=== PATIENT | female | born 1985 | race Caucasian/White ===

== ENCOUNTER 2016-09-19 14:38 | Emergency (ER) | payer OTHER ==
[~2016-09-19] VITALS: Ht 165.1 cm; Wt 68.0 kg
[~2016-09-19 14:38] MED LIST: ALBUTEROL0.09 MG/A1 INH; BIAXIN FILMTAB500 MG PO; CIPRO 500MG TA500 MG PO; CIPROFLOXACIN500 MG PO; DILAUDID2 M1 PO; DILAUDID2 MG PO; HYDROCODONE/ACE1 TA1 PO; LUPRON DEPOT3.75 MG IM; NORETHINDRONE ACETATE PO; POTASSIUM CHLO20 ME1 PO; PREDNISONE 20MG20 MG PO; REGLAN10 M1 PO; TRAMADOL HCL50 M1 PO; TRAMADOL HCL50 MG PO; VICODIN 5-3001 EACH PO; ZOFRAN ODT4 M1 SL; ZOFRAN ODT4 MG PO
--- NOTE | 2016-09-19 15:29 | ED GI/GU/ABDOMINAL COMPLAINT ---
History of Present Illness General Chief Complaint: Abdominal Pain/Flank Pain Stated Complaint: I HAVE A KIDNEY STONE Source: patient Exam Limitations: no limitations Vital Signs & Intake/Output Vital Signs & Intake/Output Vital Signs Date Time Temp Pulse Resp B/P B/P Pulse O2 O2 Flow FiO2 Mean Ox Delivery Rate 09/19 1457 98.8 110 20 162/88 98 Room Air Allergies Coded Allergies: aspirin (Severe, RASH 03/12/16) venom-honey bee (BEE VENOM (HONEY BEE)) (Severe, ANAPHYLAXIS 03/12/16) adhesive tape (Intermediate, RASH 03/12/16) ketorolac (RASH, HIVES 09/19/16) oxycodone (RASH 03/12/16) Triage Note: PT PRESENTS TO ED WITH INTERMINTENT 5/10 "SHARP" LLQ PAIN WHICH BEGAN AT 2300 HOURS YESTERDAY (09/18/16). PAIN INCREASES UPON PALPATION. PT C/O BRIGHT RED BLOOD IN URINE SINCE 1000 HOURS TODAY (09/19/16). HX OF HYSTERECTOMY 2011. Triage Nurses Notes Reviewed? yes ? n Is pt currently ? No Onset: Gradual Duration: hour(s): (8) Timing: recent history Quality/Severity: sharpness Severity Numbers: 7 Location: left flank Radiation: LLQ Activities at Onset: none Prior Abdominal Problems: similar symptoms Past Sexual History: Unobtainable at this time No Modifying Factors: none HPI: Patient is a 31-year-old female with history of kidney stones presenting to the emergency department with chief complaint of left flank pain that pain going on for the past 6-8 hours. She reports that this started gradually, pain is sharp and stabbing located over the left low back radiating to the left lower quadrant. Chest reports associated hematuria that started this morning when she was at work. No dysuria. She does have urgency and decreased urinary output since pain started. Low-grade fevers this morning up to 100F. She took ibuprofen which seemed to help with the fever. Positive nausea but no vomiting. Her last kidney stone was 10 mm. She is to see Dr. Wei until he left the practice. Denies any recent travel. No recent antibiotic use. (KULDIP CARLISLE,CATHY) Reconcile Medications Ciprofloxacin HCl (Cipro) 500 MG TABLET 1 TAB PO BID PYELONEPHRITIS Hydrocodone/Acetaminophen (Vicodin 5-300 MG Tablet) 5 MG-300 MG TABLET 1 TAB PO Q6HR PRN PAIN (KRISTEN BETANCOURT,CRISTÓBAL) Past History Travel History Traveled to [place] past 21 day No Medical History Any Pertinent Medical History? 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 No (CATHY ESPARZA) Review of Systems Review of Systems Constitutional: Reports: no symptoms. Comments Review of systems: See HPI, All other systems negative. Constitutional, no weight loss HEENT: No visual changes no sore throat no congestion Cardiovascular: No chest pain ,palpitation , orthopnea or ankle swelling Skin, no jaundice no rashes Respiratory: No dyspnea cough sputum or hemoptysis GI: no vomiting : No dysuria No hematuria Muscle skeletal: no neck pain, Neurologic: No numbness no confusion Psych: No stress anxiety or depression,. Heme/endocrine: No bruising no bleeding no polyuria or polydipsia Immunology: No splenectomy or history of AIDS (CATHY ESPARZA) Physical Exam Physical Exam General Appearance: well developed/nourished, no apparent distress, alert, awake , anxious Gastrointestinal: guarding Comments: Well-developed well-nourished person in no acute distress HEENT:. Pupils equally round and reactive to light and accommodation. Nose is atraumatic. Pharynx normal. No swelling or edema. Neck: Normal inspection Back: Left CVA tenderness.. Full range of motion Cardiovascular: Regular rate and rhythms no murmurs rubs or gallops, normal JVP Respiratory: Chest nontender. No respiratory distress.breath sounds clear to auscultation bilaterally Abdomen: Soft, tender to palpation in the left lower quadrant with mild guarding. Nondistended, no appreciable organomegaly. Normal bowel sounds. No ascites Extremity: No edema Neuro: Alert oriented x3 Skin: No appreciable rash on exposed skin, skin is warm and dry. Psych: Mood and affect is normal, memory and judgment is normal. Core Measures ACS in differential dx? No Severe Sepsis Present: No Septic Shock Present: No (KULDIP CARLISLE,CATHY) Progress Differential Diagnosis: UTI/pyelo, ureterolithiasis, hydronephrosis, pyelonephritis, acute kidney injury, dehydration Plan of Care: Orders Procedure Date/time Status Add-on Test (ER Only) 09/19 174 Active CULTURE,URINE 09/19 1645 Active URINE 09/19 153 Complete URINALYSIS 09/19 153 Complete COMPREHENSIVE METABOLIC PANEL 09/19 153 Complete CBC WITHOUT DIFFERENTIAL 09/20 1535 Complete Laboratory Tests 09/19/16 164: Anion Gap 14, Estimated GFR > 60, BUN/Creatinine Ratio 17.1, Glucose 89, Calcium 9.2, Total Bilirubin 0.7, AST 27, ALT 41, Alkaline Phosphatase 51, Total Protein 7.0, Albumin 4.5, Globulin 2.5, Albumin/Globulin Ratio 1.8, CBC w Diff NO MAN DIFF REQ, RBC 4.37, MCV 92.8, MCH 31.4 H, RDW 12.4, MPV 8.2, Gran % 81.4 H, Lymphocytes % 12.2 L, Monocytes % 5.7, Eosinophils % 0.4, Basophils % 0.3, Absolute Granulocytes 4.1, Absolute Lymphocytes 0.6 L, Absolute Monocytes 0.3, Absolute Eosinophils 0, Absolute Basophils 0, PUBS MCHC 33.8, Urinalysis LIGHT H, Urine Color PINK H, Urine Clarity CLDY H, Urine pH 6.0, Ur Specific [place] 1.010, Urine Protein 100 H, Urine Ketones NEG, Urine Nitrite POS H, Urine Bilirubin NEG, Urine Urobilinogen 0.2, Ur Leukocyte Esterase MOD H, Ur Microscopic SEDIMENT EXAMINED, Urine RBC >75 H, Urine WBC 10-15 H, Ur Epithelial Cells FEW, Urine Bacteria MOD H, Urine Mucus RARE, Urine Hemoglobin LARGE H, Urine Glucose NEG, Urine Test NEGATIVE Microbiology 09/19 1645 URINE ROUT: Urine Culture - RECD Diagnostic Imaging: Viewed by Me: CT Scan. Discussed w/RAD: CT Scan. Radiology Impression: PATIENT: FRED VARGAS PRESENT AGE: 31 PATIENT ACCOUNT NO: [id number] : 85 LOCATION: [facility] [place] ORDERING PHYSICIAN: CATHY CARLISLE SERVICE DATE: 09/19/16 EXAM TYPE: CAT - CT ABD & PELVIS W/O IV CONTRAS EXAMINATION: CT ABDOMEN AND PELVIS WITHOUT CONTRAST CLINICAL INFORMATION: Left flank pain COMPARISON: 03/12/2016. TECHNIQUE : Multidetector volumetric imaging was performed from the superior aspect of the liver through the pubic symphysis. Sagittal and coronal reformatted images were obtained on the technologist's workstation. DLP: 357 mGy-cm FINDINGS: LUNG BASES : The visualized lung bases are clear. The imaged heart and pericardium appear unremarkable. LIVER, GALLBLADDER, AND BILIARY TREE: The liver is normal in size, shape, and attenuation. No focal hepatic lesion. There has been prior cholecystectomy. Stable prominence of the extrahepatic biliary ductal system with normal tapering. PANCREAS: Unremarkable. SPLEEN: Unremarkable. ADRENAL GLANDS: Unremarkable. KIDNEYS AND URETERS: The kidneys are normal in size, shape , and attenuation. No hydronephrosis, hydroureter, or calculi seen. No perinephric stranding. BLADDER: Unremarkable. GASTROINTESTINAL TRACT: The small and large bowel are unremarkable. The appendix is unremarkable. ABDOMINAL WALL: No significant hernia is appreciated. There is a punctate density in the right parasagittal abdominal wall possibly postsurgical and unchanged. LYMPH NODES: No convincing adenopathy. VASCULAR: The aorta appears normal in caliber. PELVIC VISCERA: There appears to have been a hysterectomy. There is a left adnexal cyst measuring 3.8 cm. Right adnexal follicles are visualized. OSSEOUS STRUCTURES: No acute abnormalities. There is a mild levoconvex lumbar scoliosis. No evidence of spondylolyses. There is a small bone island in the right iliac bone, unchanged. IMPRESSION: No acute intra-abdominal or intrapelvic pathology is visualized. Status post cholecystectomy and hysterectomy. A 3.8 cm left adnexal cyst. DICTATED BY: DIANNA WEST MD DATE/TIME DICTATED:09/19/161742 [place] MARSHAL:PATRICK DATE/TIME TRANSCRIBED:09/19/161742 CONFIDENTIAL, DO NOT COPY WITHOUT APPROPRIATE AUTHORIZATION. <Electronically signed in Other Vendor System> SIGNED BY: DIANNA WEST MD 09/19/161751 Initial ED EKG: none Comments: 09/19/2016 5:07:11 PM patient had no relief with by mouth Vicodin. IV morphine ordered. Blood work Still pending. (CATYH ESPARZA) Departure Departure Time of Disposition: 1753 Disposition: HOME OR SELF CARE Condition: Stable Clinical Impression Primary Impression: Pyelonephritis Referrals: SERGO BETANCOURT,CHUN Carroll (PCP/Family) Additional Instructions: Follow-up with your primary care physician calling appointment. Take Cipro as prescribed for kidney infection. Increase fluids. Take Vicodin as prescribed for pain. Return for worsening symptoms or concerns. Departure Forms: Customer Survey General Discharge Information Prescriptions: Current Visit Scripts Ciprofloxacin HCl (Cipro) 1 TAB PO BID #14 TAB Hydrocodone/Acetaminophen (Vicodin 5-300 MG Tablet) 1 TAB PO Q6HR PRN PAIN #10 TAB (CATHY ESPARZA) PA/JUNIOR ACCOUNTING CLERK Co-Sign Statement Statement: ED Attending supervision documentation- [] I saw and evaluated the patient. I have also reviewed all the pertinent lab results and diagnostic results. I agree with the findings and the plan of care as documented in the PA's/JUNIOR ACCOUNTING CLERK's documentation. [X] I have reviewed the ED Record and agree with the PA's/JUNIOR ACCOUNTING CLERK's documentation. [] Additions or exceptions (if any) to the PAs/JUNIOR ACCOUNTING CLERK's note and plan are summarized below: [] (KRISTEN BETANCOURT,CRISTÓBAL)
[2016-09-19 17:03] LABS: ABSOLUTE BASOPHIL COUNT 0 /CUMM (0.0-0.2); ABSOLUTE EOSINOPHIL COUNT 0 /CUMM (0.0-0.7); ABSOLUTE GRANULOCYTE CT 4.1 /CUMM (1.4-6.5); ABSOLUTE LYMPH COUNT 0.6 /CUMM (1.2-3.4); ABSOLUTE MONOCYTE COUNT 0.3 /CUMM (0.10-0.60); BASOPHIL % 0.3 % (0.0-2.0); EOSINOPHIL % 0.4 % (0-5); GRANULOCYTE % 81.4 % (42.2-75.2); HEMATOCRIT 40.5 % (37-47); MEAN CORPUSCULAR HGB 31.4 PG (27.0-31.0); MEAN CORPUSCULAR HGB CONC 33.8 G/DL (33.0-37.0); MEAN CORPUSCULAR VOLUME 92.8 FL (81.0-99.0); MEAN PLATELET VOLUME 8.2 FL (7.4-10.4); PLATELET COUNT 209 /CUMM (130-400); RBC DISTRIBUTION WIDTH 12.4 % (11.5-14.5); RED BLOOD CELL CT 4.37 /CUMM (4.20-5.40)
--- NOTE | 2016-09-19 17:52 | CT SCAN REPORT ---
EXAMINATION: CT ABDOMEN AND PELVIS WITHOUT CONTRAST CLINICAL INFORMATION: Left flank pain COMPARISON: 03/12/2016. TECHNIQUE: Multidetector volumetric imaging was performed from the superior aspect of the liver through the pubic symphysis. Sagittal and coronal reformatted images were obtained on the technologist's workstation. DLP: 357 mGy-cm FINDINGS: LUNG BASES: The visualized lung bases are clear. The imaged heart and pericardium appear unremarkable. LIVER, GALLBLADDER, AND BILIARY TREE: The liver is normal in size, shape, and attenuation. No focal hepatic lesion. There has been prior cholecystectomy. Stable prominence of the extrahepatic biliary ductal system with normal tapering. PANCREAS: Unremarkable. SPLEEN: Unremarkable. ADRENAL GLANDS: Unremarkable. KIDNEYS AND URETERS: The kidneys are normal in size, shape, and attenuation. No hydronephrosis, hydroureter, or calculi seen. No perinephric stranding. BLADDER: Unremarkable. GASTROINTESTINAL TRACT: The small and large bowel are unremarkable. The appendix is unremarkable. ABDOMINAL WALL: No significant hernia is appreciated. There is a punctate density in the right parasagittal abdominal wall possibly postsurgical and unchanged. LYMPH NODES: No convincing adenopathy. VASCULAR: The aorta appears normal in caliber. PELVIC VISCERA: There appears to have been a hysterectomy. There is a left adnexal cyst measuring 3.8 cm. Right adnexal follicles are visualized. OSSEOUS STRUCTURES: No acute abnormalities. There is a mild levoconvex lumbar scoliosis. No evidence of spondylolyses. There is a small bone island in the right iliac bone, unchanged. IMPRESSION: No acute intra-abdominal or intrapelvic pathology is visualized. Status post cholecystectomy and hysterectomy. A 3.8 cm left adnexal cyst.
[2016-09-19] MEDS ORDERED: CIPRO500 M1 PO (17:57)
[2016-09-19] MEDS ORDERED: VICODIN 5-3001 EACH PO (17:58)
[2016-09-19 18:06] VITALS: BP 142/74
== END 2016-09-19 18:07 ==
LOC: ERH 14:38
PROVIDERS: Physician Assistant
DX: N12 Tubulo-interstitial nephritis, not specified as acute or chronic (principal)
CPT/HCPCS: 74176; 81001; 81025; 87086; 96374; J3101

== ENCOUNTER 2017-06-11 15:36 | Emergency (ER) | payer OTHER ==
[~2017-06-11] VITALS: Ht 162.6 cm; Wt 72.6 kg
[~2017-06-11 15:36] MED LIST changes: +CIPRO500 M1 PO
--- NOTE | 2017-06-11 16:12 | ED GENERAL ADULT ---
History of Present Illness General Chief Complaint: Abdominal Pain/Flank Pain Stated Complaint: SIB OB FOR ABD PAIN Source: patient Exam Limitations: no limitations Vital Signs & Intake/Output Vital Signs & Intake/Output Vital Signs Date Time Temp Pulse Resp B/P B/P Pulse O2 O2 Flow FiO2 Mean Ox Delivery Rate 06/11 2102 104 18 133/84 98 Room Air 06/11 1840 145/78 06/11 1758 106 16 126/84 06/11 1543 98.7 96 20 129/82 96 Room Air Allergies Coded Allergies: aspirin (Severe, RASH 03/12/16) venom-honey bee (BEE VENOM (HONEY BEE)) (Severe, ANAPHYLAXIS 03/12/16) adhesive tape (Intermediate, RASH 03/12/16) ketorolac (RASH, HIVES 09/19/16) oxycodone (RASH 03/12/16) Triage Note: PT TO ED C/O 03/10 LLQ PAIN SINCE YESTERDAY. INCREASING PAIN TODAY. WAS AT OBGYN, SENT IN FOR ?CAT SCAN FOR RULE OUT TORSION. +N/-V, DIARRHEA FOR THE PAST COUPLE OF DAYS. PT C/O FREQUENCY. Triage Nurses Notes Reviewed? yes : No Patient currently breastfeeds: No HPI: 06/11/17 4:30 PM 32-year-old female presents to the emergency department with severe left lower quadrant abdominal pain. The patient states that she has a history of ovarian cyst. She saw her webmethods consultant earlier today and had an ultrasound and the results showed ovarian cyst. There was concern for the possibility of a torsion. She was referred for further imaging studies. She status post hysterectomy. She has no significant other past medical history. The onset of the symptoms was abrupt, the duration has been several days, the severity is significant; as her symptoms required her to come to the emergency department for care. (Colin Hare DO) Reconcile Medications Ciprofloxacin HCl (Cipro) 500 MG TABLET 1 TAB PO BID PYELONEPHRITIS Hydrocodone/Acetaminophen ([facility] 5-325 Tablet) 5 MG-325 MG TABLET 1-2 TAB PO Q4-6 PRN PRN severe pain Hydrocodone/Acetaminophen (Vicodin 5-300 MG Tablet) 5 MG-300 MG TABLET 1 TAB PO Q6HR PRN PAIN (Hayley BETANCOURT,Kristofer) Past History Travel History Traveled to [place] past 21 day No Medical History Any Pertinent Medical History? 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 No (Colin Hare DO) Review of Systems Review of Systems Constitutional: Denies: fever. EENTM: Denies: visual changes. Respiratory: Denies: short of breath. Cardiovascular: Denies: chest pain. GI: Reports: abdominal pain. Genitourinary: Reports: no symptoms. Musculoskeletal: Reports: no symptoms. Skin: Reports: no symptoms. Neurological/Psychological: Reports: no symptoms. Hematologic/Endocrine: Reports: no symptoms. Immunologic/Allergic: Reports: no symptoms. (Colin Hare DO) Physical Exam Physical Exam General Appearance: well developed/nourished, alert, awake, anxious, moderate distress Head: atraumatic, normal appearance Eyes: Bilateral: normal appearance, PERRL, EOMI. Ears, Nose, Throat: normal pharynx, normal ENT inspection Neck: normal inspection, supple, full range of motion Respiratory: normal breath sounds, chest non-tender, no respiratory distress Cardiovascular: regular rate/rhythm Peripheral Pulses: 4+ radial (R), 4+ radial (L) Gastrointestinal: soft, tenderness, LLQ Back: normal range of motion Extremities: normal inspection Neurologic/Psych: no motor/sensory deficits, awake, alert, oriented x 3 Skin: intact, normal color, warm/dry Comments: 06/11/17 7:46 PM The patient was signed out to Dr. Hardy at 7 PM Core Measures ACS in differential dx? No CVA/TIA Diagnosis: No Sepsis Present: No Sepsis Focused Exam Completed? No (Colin Hare DO) Progress Differential Diagnoses I considered the following diagnoses in my evaluation of the patient: Plan of Care: Orders Procedure Date/time Status CULTURE,URINE 06/11 1710 Active URINALYSIS 06/11 1710 Complete HUMAN BETA HCG SCREEN 06/11 1628 Complete COMPREHENSIVE METABOLIC PANEL 06/11 1628 Complete CBC WITHOUT DIFFERENTIAL 06/11 1628 Complete Laboratory Tests 06/11/171914: Urine Color PINK H, Urine Clarity HAZY H, Urine pH 6.5, Ur Specific [place] 1.010, Urine Protein NEG, Urine Ketones 40 H, Urine Nitrite NEG, Urine Bilirubin NEG, Urine Urobilinogen 0.2, Ur Leukocyte Esterase NEG, Ur Microscopic SEDIMENT EXAMINED, Urine RBC >75 H, Urine WBC 1-3 H, Ur Epithelial Cells FEW, Urine Bacteria RARE H, Urine Mucus RARE, Urine Hemoglobin LARGE H, Urine Glucose NEG 06/11/17 174: Anion Gap 17 H, Estimated GFR > 60, BUN/Creatinine Ratio 15.7, Glucose 82, Calcium 9.8, Total Bilirubin 0.5, AST 29, ALT 50, Alkaline Phosphatase 59, Total Protein 7.7, Albumin 5.0, Globulin 2.7, Albumin/Globulin Ratio 1.9, Total Beta HCG NEGATIVE, CBC w Diff NO MAN DIFF REQ, RBC 4.57, MCV 92.8, MCH 31.1 H, RDW 13.1, MPV 8.0, Gran % 71.7, Lymphocytes % 22.4, Monocytes % 5.2, Eosinophils % 0.4, Basophils % 0.3, Absolute Granulocytes 4.8, Absolute Lymphocytes 1.5, Absolute Monocytes 0.3, Absolute Eosinophils 0, Absolute Basophils 0, PUBS MCHC 33.5 Microbiology 06/11 1914 URINE ROUT: Urine Culture - RECD Initial ED EKG: NSR Prior EKG: unchanged Comments: (Colin Hare DO) Diagnostic Imaging: Viewed by Me: Radiology Read, CT Scan. Discussed w/RAD: Radiology Read, CT Scan. Radiology Impression: No definite significant abnormality. 2 cm simple cyst in the left ovary similar to that noted previously. No associated fluid in the pelvis. Status post cholecystectomy Stable benign simple cyst right kidney. Additional tiny cysts in the upper pole right kidney too small to clearly characterize but likely present previously although slightly less conspicuous perhaps due to slight differences in imaging technique. This most likely reflects a additional benign simple cyst., The uterus is absent. The right ovary could not be visualized. The left ovary contains 2 anechoic regions likely reflecting cysts and overall the appearance of the ovary is similar to the CT study of 02/04/2017. The color Doppler examination was technically limited for assessment of blood flow to the left ovary. This study does not optimally evaluate for ovarian torsion due to these technical limitations. No evidence of free fluid or other findings. Comments: Pain relieved with morphine (Kristofer Hardy MD) Departure Departure Condition: Stable Departure Forms: Customer Survey General Discharge Information Comments The uterus has been removed. The right ovary could not be visualized transabdominally or endovaginally. The left ovary could only be visualized transabdominally and measures 2.9 x 3.5 x 2.6 cm in size. The left ovary contains 2 anechoic regions which likely reflect cysts but are not well characterized measuring 1.9 cm and 1.8 cm in maximum size. Doppler evaluation of the left ovary was limited as this region could not be evaluated endovaginally. No evidence of free fluid. IMPRESSION: The uterus is absent. The right ovary could not be visualized. The left ovary contains 2 anechoic regions likely reflecting cysts and overall the appearance of the ovary is similar to the CT study of 02/04/2017. The color Doppler examination was technically limited for assessment of blood flow to the left ovary. This study does not optimally evaluate for ovarian torsion due to these technical limitations. No evidence of free fluid or other findings. DICTATED BY: Trevor River MD DATE/TIME DICTATED:06/11/171730 SHIP DESIGN TEACHER:PATRICK DATE/TIME TRANSCRIBED:06/11/171730 CONFIDENTIAL, DO NOT COPY WITHOUT APPROPRIATE AUTHORIZATION. <Electronically signed in Other Vendor System> SIGNED BY: Trevor River MD 06/11/171740 (Colin Hare DO) Departure Time of Disposition: 2151 Disposition: HOME OR SELF CARE Clinical Impression Primary Impression: Ovarian cyst Secondary Impressions: Abdominal pain Referrals: Zakia BETANCOURT,Marie Carroll (PCP/Family) GABRIEL GRUBBS MD Prescriptions: Current Visit Scripts Hydrocodone/Acetaminophen ([facility] 5-325 Tablet) 1-2 TAB PO Q4-6 PRN PRN severe pain #15 TAB (Kristofer Hardy MD) Critical Care Note Critical Care Note Critical Care Time: 30-74 min (Colin Hare DO)
--- NOTE | 2017-06-11 17:41 | ULTRASOUND REPORT ---
EXAMINATION: US TRANSVAGINAL CLINICAL INFORMATION: Left lower quadrant pain. Ovarian cyst. Rule out torsion. Status post hysterectomy. COMPARISON: None TECHNIQUE: Transabdominal imaging followed by endovaginal assessment in this patient with left lower quadrant pain. FINDINGS: The uterus has been removed. The right ovary could not be visualized transabdominally or endovaginally. The left ovary could only be visualized transabdominally and measures 2.9 x 3.5 x 2.6 cm in size. The left ovary contains 2 anechoic regions which likely reflect cysts but are not well characterized measuring 1.9 cm and 1.8 cm in maximum size. Doppler evaluation of the left ovary was limited as this region could not be evaluated endovaginally. No evidence of free fluid. IMPRESSION: The uterus is absent. The right ovary could not be visualized. The left ovary contains 2 anechoic regions likely reflecting cysts and overall the appearance of the ovary is similar to the CT study of 02/04/2017. The color Doppler examination was technically limited for assessment of blood flow to the left ovary. This study does not optimally evaluate for ovarian torsion due to these technical limitations. No evidence of free fluid or other findings.
[2017-06-11 17:55] LABS: ABSOLUTE BASOPHIL COUNT 0 /CUMM (0.0-0.2); ABSOLUTE EOSINOPHIL COUNT 0 /CUMM (0.0-0.7); ABSOLUTE GRANULOCYTE CT 4.8 /CUMM (1.4-6.5); ABSOLUTE LYMPH COUNT 1.5 /CUMM (1.2-3.4); ABSOLUTE MONOCYTE COUNT 0.3 /CUMM (0.10-0.60); BASOPHIL % 0.3 % (0.0-2.0); EOSINOPHIL % 0.4 % (0-5); GRANULOCYTE % 71.7 % (42.2-75.2); HEMATOCRIT 42.3 % (37-47); MEAN CORPUSCULAR HGB 31.1 PG (27.0-31.0); MEAN CORPUSCULAR HGB CONC 33.5 G/DL (33.0-37.0); MEAN CORPUSCULAR VOLUME 92.8 FL (81.0-99.0); PLATELET COUNT 267 /CUMM (130-400); RBC DISTRIBUTION WIDTH 13.1 % (11.5-14.5); RED BLOOD CELL CT 4.57 /CUMM (4.20-5.40); WHITE BLOOD CELL COUNT 6.6 /CUMM (4.8-10.8)
--- NOTE | 2017-06-11 20:09 | CT SCAN REPORT ---
EXAMINATION: CT ABDOMEN AND PELVIS WITH CONTRAST CLINICAL INFORMATION: Left lower quadrant pain. Evaluate for torsion. COMPARISON: Prior examinations including ultrasound April [address] January 2017. Multiple prior CT examinations going back to 2013 TECHNIQUE: Multidetector volumetric imaging was performed of the abdomen and pelvis following IV administration of 98 mL of Optiray 320 intravenous contrast. Sagittal and coronal reformatted images were obtained on the technologist's workstation. DLP: 363 mGy-cm FINDINGS: LUNG BASES: The visualized lung bases are unremarkable. LIVER, GALLBLADDER, AND BILIARY TREE: There is slight prominence to the intrahepatic and extra hepatic biliary tree similar to prior likely related to the apparent cholecystectomy. No mass or ductal stone identified. The distal common bile duct measures up to 11 mm. No change. PANCREAS: Unremarkable. SPLEEN: Unremarkable. ADRENAL GLANDS: Unremarkable. KIDNEYS AND URETERS: There is a stable benign-appearing simple cyst in the posterior cortex of the right lower pole right kidney. There is a small hypodense lesion in the upper pole of the kidney too small to clearly characterize but present previously but less conspicuous most compatible with a benign cyst. BLADDER: Unremarkable. GASTROINTESTINAL TRACT: Appendix normal. Large bowel normal. Small bowel normal. Stomach normal. ABDOMINAL WALL: No significant hernia is appreciated. LYMPH NODES: Normal. VASCULAR: Unremarkable. PELVIC VISCERA: There is a 2 cm cyst in the left ovary similar to that noted previously. There is no free fluid in the pelvis. OSSEOUS STRUCTURES: Unremarkable. IMPRESSION: No definite significant abnormality. 2 cm simple cyst in the left ovary similar to that noted previously. No associated fluid in the pelvis. Status post cholecystectomy Stable benign simple cyst right kidney. Additional tiny cysts in the upper pole right kidney too small to clearly characterize but likely present previously although slightly less conspicuous perhaps due to slight differences in imaging technique. This most likely reflects a additional benign simple cyst.
[2017-06-11 21:02] VITALS: BP 133/84
[2017-06-11] MEDS ORDERED: NORCO 5-325 TA1 EACH PO (21:53)
== END 2017-06-11 22:02 ==
LOC: ERH 15:36
PROVIDERS: Emergency Medicine
DX: N83.202 Unspecified ovarian cyst, left side (principal)
CPT/HCPCS: 74177; 81001; 87086; 96361; 96374; 96375; 96376; J0131; J1200; J2405

== ENCOUNTER 2018-01-11 16:34 | Inpatient (IN) | payer OTHER ==
[~2018-01-11] VITALS: Ht 167.6 cm; Wt 68.0 kg
[~2018-01-11 16:34] MED LIST changes: +NORCO 5-325 TA1 EACH PO
--- NOTE | 2018-01-11 18:42 | RADIOLOGY REPORT ---
EXAMINATION: XR SOFT TISSUE NECK CLINICAL INDICATION: Foreign body. Swallowed sewing needle. COMPARISON: None TECHNIQUE: 2 views of the soft tissue neck were obtained. FINDINGS: No radiopaque foreign body is seen within the pharynx or upper esophagus. There is no prevertebral soft tissue swelling. The cervical vertebral bodies demonstrate normal heights and alignment. No fracture is seen. The visualized lung apices are clear. IMPRESSION: No radiopaque foreign body in the neck soft tissues.
--- NOTE | 2018-01-11 18:43 | RADIOLOGY REPORT ---
EXAMINATION: XR ABDOMEN CLINICAL INDICATION: Swallowed a sewing needle COMPARISON: CT abdomen pelvis 06/11/2017 TECHNIQUE: AP view of the abdomen. FINDINGS: A needle is present overlying the region of the distal antrum. Clips are noted in the gallbladder fossa. The bowel gas pattern is normal with no evidence of ileus or obstruction. No unusual soft tissue calcifications or other foreign bodies are noted. There is a scoliosis convex to the left. IMPRESSION: The swallowed needle appears to be in the antrum of the stomach.
--- NOTE | 2018-01-11 18:43 | RADIOLOGY REPORT ---
EXAMINATION:\H\ \N\XR CHEST CLINICAL INFORMATION: Swallowed a pin. COMPARISON: None TECHNIQUE: Frontal view of the chest was obtained. FINDINGS: No radiopaque foreign body. No significant abnormality is noted involving the heart, lungs, mediastinum, bony thorax or soft tissues. There are surgical clips in the right upper quadrant of abdomen. IMPRESSION: Unremarkable examination.
--- NOTE | 2018-01-11 22:07 | Cons- General Surgery ---
Vonda Serrano 01/11/18 2159: General Information and HPI Consulting Request Date of Consult: 01/11/18 Requested By: Mouna CARLISLE Reason for Consult: "swallowed sewing needle" History of Present Illness: 32F seen in ED with abdominal pain after accidentally swallowing a sewing needle /pin. She was hemming her pants and holding the needle between her teeth, coughed and inhaled the needle. She then drank a glass of water to rinse it down. This occured at 3pm today. Per pt, she "freaked out" and came to the ED after discussing the issue with her PCP. She didn't have pain initially, though after being in the ED has developed pain in her epigastric and LUQ regions. Admits to some nausea, no vomiting. Admits to feeling anxious about the situation. No SOB, CP, throat pain, dysphagia. Last BM this am. In her usual state of health, feeling well until this incident. 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, oopherectomy, uterine artery embolization, emergent abdominal hysterectomy, sp lap coco during ) and urological history (hx nephrolithiasis, hydronephrosis, sp multiple lithotripsies, cystos, stents) Allergies/Medications Allergies: Coded Allergies: aspirin (Severe, RASH 03/12/16) venom-honey bee (BEE VENOM (HONEY BEE)) (Severe, ANAPHYLAXIS 03/12/16) adhesive tape (Intermediate, RASH 03/12/16) ketorolac (RASH, HIVES 09/19/16) oxycodone (RASH 03/12/16) Home Med List: No Known Home Medications Past History Medical History Hepatic: sp lap coco during Renal: nephrolithiasis, hx pyelo, hydro 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: endometriosis, ovarian cysts sp oppherectomy, placenta accreta sp hyst, uterine a embolization Surgical History Pertinent Surgical History: cholecystectomy, hysterectomy, ureteral stents, lithotripsy, oopherectomy Psychosocial History Services at Home: None ETOH Use: occasional use Illicit Drug Use: denies illicit drug use Employment History Employment: 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 Exam & Diagnostic Data Vital Signs and I&O Vital Signs Date Time Temp Pulse Resp B/P B/P Pulse O2 O2 Flow FiO2 Mean Ox Delivery Rate 08/13 1921 Room Air 08/13 1920 98.2 104 18 136/81 99 Room Air 01/11 1650 97.3 126 24 146/84 98 Room Air Room Air Physical Exam: gen- nad card-s1s2 pulm- ctab abd- voluntary guarding, no rebound, ttp epigastric/luq, wellhealed surgical incisions ext- calves soft nt Imaging Results: SERVICE DATE: 01/11/18 EXAM TYPE: RAD - [id number] VIEW EXAMINATION: XR ABDOMEN CLINICAL INDICATION: Swallowed a sewing needle COMPARISON: CT abdomen pelvis 06/11/2017 TECHNIQUE: AP view of the abdomen. FINDINGS: A needle is present overlying the region of the distal antrum. Clips are noted in the gallbladder fossa. The bowel gas pattern is normal with no evidence of ileus or obstruction. No unusual soft tissue calcifications or other foreign bodies are noted. There is a scoliosis convex to the left. IMPRESSION: The swallowed needle appears to be in the antrum of the stomach. Assessment/Plan Assessment/Plan A- 32yoF with accidental ingestion of sewing needle, with anxiety likely contributing to pain and nausea, though true injury from object is possible, currently stable P- dw Dr. Guzman check noncontrast CT ap to furhter eval location of needle. If no organ injury, ok to dc home and monitor stool for object. If needle stuck in stomach, recommend Gi consult Consult Acknowledgment - Thank you for your consult request. Thomas BETANCOURT,Boni J 01/13/18 0828: Assessment/Plan Consult Acknowledgment - Thank you for your consult request. Attending MD Review Statement Attending Statement Attending Assessment/Plan: Patient not seen. I reviewed CT. Recommend GI consult for endoscopic extraction.
[2018-01-11 22:08] LABS: ABSOLUTE BASOPHIL COUNT 0 /CUMM (0.0-0.2); ABSOLUTE EOSINOPHIL COUNT 0 /CUMM (0.0-0.7); ABSOLUTE GRANULOCYTE CT 5.1 /CUMM (1.4-6.5); ABSOLUTE LYMPH COUNT 1.7 /CUMM (1.2-3.4); ABSOLUTE MONOCYTE COUNT 0.6 /CUMM (0.10-0.60); BASOPHIL % 0.3 % (0.0-2.0); EOSINOPHIL % 0.6 % (0-5); GRANULOCYTE % 68.3 % (42.2-75.2); HEMATOCRIT 44.6 % (37-47); MEAN CORPUSCULAR HGB 30.8 PG (27.0-31.0); MEAN CORPUSCULAR HGB CONC 33.3 G/DL (33.0-37.0); MEAN CORPUSCULAR VOLUME 92.5 FL (81.0-99.0); MEAN PLATELET VOLUME 8.1 FL (7.4-10.4); PLATELET COUNT 265 /CUMM (130-400); RED BLOOD CELL CT 4.82 /CUMM (4.20-5.40); WHITE BLOOD CELL COUNT 7.4 /CUMM (4.8-10.8)
--- NOTE | 2018-01-11 22:29 | CT SCAN REPORT ---
EXAMINATION: CT ABDOMEN AND PELVIS WITHOUT CONTRAST CLINICAL INFORMATION: Ingested a needle COMPARISON: KUB from earlier today TECHNIQUE: Multidetector volumetric imaging was performed from the superior aspect of the liver through the pubic symphysis. Sagittal and coronal reformatted images were obtained on the technologist's workstation. DLP: 329 mGy-cm FINDINGS: LUNG BASES: The visualized lung bases are unremarkable. LIVER, GALLBLADDER, AND BILIARY TREE: The liver is normal in size, shape, and attenuation. No focal hepatic lesion or biliary ductal dilatation is present. Surgical clips are noted in the gallbladder in this patient status post cholecystectomy PANCREAS: Unremarkable. SPLEEN: Unremarkable. ADRENAL GLANDS: Unremarkable. KIDNEYS AND URETERS: The kidneys are normal in size, shape, and attenuation. No hydronephrosis, hydroureter, or calculi seen. No perinephric stranding. BLADDER: Unremarkable. GASTROINTESTINAL TRACT: The ingested no other foreign bodies are seen. Needle is within the stomach. It extends through the dorsal and ventral wall but is not seen with certainty outside the lumen. No free air or hematoma is seen in the region. ABDOMINAL WALL: No significant hernia is appreciated. LYMPH NODES: Normal. VASCULAR: Unremarkable. PELVIC VISCERA: Patient status post hysterectomy. There is a 2.6 x 2.1 cm left adnexal cyst present which has been noted in the past. OSSEOUS STRUCTURES: Unremarkable. IMPRESSION: The ingested needle is within the stomach. The ends of the needle appear to be embedded in the horner of the stomach but are not seen significantly beyond the lumen of the stomach. Incidental note made of cholecystostomy along with left ovarian cyst.
[2018-01-11 22:31] LABS: PT 10.2 SEC (9.4-12.5); PTT 35 SEC (25-37)
--- NOTE | 2018-01-11 23:55 | ED GENERAL ADULT ---
History of Present Illness General Chief Complaint: General Adult Stated Complaint: ACCIDENTLY SWALLOWED SEWING NEEDLE Allergies Coded Allergies: aspirin (Severe, RASH 03/12/16) venom-honey bee (BEE VENOM (HONEY BEE)) (Severe, ANAPHYLAXIS 03/12/16) adhesive tape (Intermediate, RASH 03/12/16) ketorolac (RASH, HIVES 09/19/16) oxycodone (RASH 03/12/16) Reconcile Medications No Known Home Medications Triage Note: PT TO ED S/P "WAS SEWING, HAD THE NEEDLE BETWEEN MY TEETH AND THEN COUGHED, SWALLOWED THE NEEDLE, NOW I HAVE PAIN TO MY UPPER ABD". : No Patient currently breastfeeds: No (Mouna Velasquez) Vital Signs & Intake/Output Vital Signs & Intake/Output Vital Signs Date Time Temp Pulse Resp B/P B/P Pulse O2 O2 Flow FiO2 Mean Ox Delivery Rate 01/12 0011 98.2 80 18 137/92 99 Room Air 01/11 2304 97.5 82 18 131/78 98 01/11 1921 Room Air 01/11 1920 98.2 104 18 136/81 99 Room Air 01/11 1650 97.3 126 24 146/84 98 Room Air Room Air ED Intake and Output 01/12 0000 01/11 1200 Intake Total 0 Output Total Balance 0 Intake, Oral 0 Patient 150 lb Weight Weight Reported by Patient Measurement Method (Cassandra BETANCOURT,Christiano Gonsalez) Past History Travel History Traveled to [place] past 21 day No Medical History Hepatic: sp lap coco during Renal: nephrolithiasis, hx pyelo, hydro 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: endometriosis, ovarian cysts sp oppherectomy, placenta accreta sp hyst, uterine a embolization History of MRSA: No History of VRE: No History of CDIFF: No Surgical History Surgical History: cholecystectomy, hysterectomy, ureteral stents, lithotripsy, oopherectomy Psychosocial History Who do you live with Family Services at Home None What is your primary language Korean Tobacco Use: Never used ETOH Use: occasional use Illicit Drug Use: denies illicit drug use Family History Family History, If Any: MOTHER FH: CAD (coronary artery disease) Relation not specified for: Kidney stone Kidney stones lupus erythematosus lupus erythematosus Employment History 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) Progress Plan of Care: Orders Procedure Date/time Status Nothing by Mouth 01/12 B Active BASIC ELECTROLYTES PLUS BUN&CR 01/12 0600 Active Pathway - chart 01/12 0010 Active House Staff 01/12 0010 Active VTE Mechanical Prophylaxis 01/12 UNK Active Vital Signs 01/12 UNK Active Patient Data 01/11 2357 Active Saline Lock 01/11 235 Active Misc Message 01/11 235 Active ED Holding Orders 01/11 235 Active Admit to inpatient 01/11 235 Active Vital Signs 01/11 235 Active Code Status 01/11 2350 Active Intake & Output 01/11 2110 Active PARTIAL THROMBOPLASTIN TIME 01/11 2002 Complete PROTHROMBIN TIME 01/11 2002 Complete COMPREHENSIVE METABOLIC PANEL 01/11 2002 Complete CBC WITHOUT DIFFERENTIAL 01/11 2002 Complete TYPE & SCREEN (NOT X-MATCH) 01/11 2002 Complete Current Medications Sig/Hossein Start time Last Medication Dose Stop Time Status Admin Potassium Chloride 40 MEQ Q8H 01/12 0100 AC (KCl 40MEQ in NS 01/12 0859 1000ML) Sodium Chloride 1,000 ML (Normal Saline 0.9%) Morphine Sulfate 2 MG Q6P PRN 01/12 0015 AC (MORPHINE SULFATE) Ondansetron HCl 4 MG Q6P PRN 01/12 0015 AC (Zofran) Laboratory Tests 01/11/18 2150: Anion Gap 15, Estimated GFR > 60, BUN/Creatinine Ratio 18.0, Glucose 81, Calcium 10.3 H, Total Bilirubin 0.6, AST 15, ALT 24, Alkaline Phosphatase 60, Total Protein 7.9, Albumin 5.2 H, Globulin 2.7, Albumin/Globulin Ratio 1.9, PT 10.2, INR 0.94, APTT 35, CBC w Diff NO MAN DIFF REQ, RBC 4.82, MCV 92.5, MCH 30.8, MCHC 33.3, RDW 13.0, MPV 8.1, Gran % 68.3, Lymphocytes % 23.3, Monocytes % 7.5, Eosinophils % 0.6, Basophils % 0.3, Absolute Granulocytes 5.1, Absolute Lymphocytes 1.7, Absolute Monocytes 0.6, Absolute Eosinophils 0, Absolute Basophils 0 (Cassandra BETANCOURT,Christiano Gonsalez) Departure Departure Condition: Stable Referrals: Zakia BETANCOURT,Marie Carroll (PCP/Family) Departure Forms: Customer Survey General Discharge Information Prescriptions: Current Visit Scripts No Known Home Medications (Mouna Velasquez) PA/BANQUET BARTENDER Co-Sign Statement Statement: ED Attending supervision documentation- [x] I saw and evaluated the patient. I have also reviewed all the pertinent lab results and diagnostic results. I agree with the findings and the plan of care as documented in the PA's/BANQUET BARTENDER's documentation. pt with accidental swallowing of needle.... pt merits observation, egd in AM to retrieve nail. [] I have reviewed the ED Record and agree with the PA's/BANQUET BARTENDER's documentation. [] Additions or exceptions (if any) to the PAs/BANQUET BARTENDER's note and plan are summarized below: [] (Cassandra BETANCOURT,Christiano Gonsalez)
--- NOTE | 2018-01-11 23:58 | History & Physical ---
Darío Chen 01/11/18 1074: General Information and HPI MD Statement: I have seen and personally examined FRED DEL ROSARIO and documented this H&P. The patient is a 32 year old F who presented with a patient stated chief complaint of [I swallowed a sewing needle]. Source of Information: patient, old records Exam Limitations: no limitations History of Present Illness: 32F seen in ED with abdominal pain after accidentally swallowing a sewing needle /pin. She was hemming her pants and holding the needle between her teeth, coughed and inhaled the needle. She then drank a glass of water to rinse it down. This occured at 3pm today. Per pt, she "freaked out" and came to the ED after discussing the issue with her PCP. She didn't have pain initially, though after being in the ED has developed pain in her epigastric and LUQ regions. Admits to some nausea, no vomiting. Admits to feeling anxious about the situation. No SOB, CP, throat pain, dysphagia. Denies any hematemesis. Does feel the object in her stomach, states that she does not feel it moving. Last BM this am. In her usual state of health, feeling well until this incident. 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 ROS: negative Allergies/Medications Allergies: Coded Allergies: aspirin (Severe, RASH 03/12/16) venom-honey bee (BEE VENOM (HONEY BEE)) (Severe, ANAPHYLAXIS 03/12/16) adhesive tape (Intermediate, RASH 03/12/16) ketorolac (RASH, HIVES 09/19/16) oxycodone (RASH 03/12/16) Home Med list No Known Home Medications Past History Travel History Traveled to [place] past 21 day No Medical History Hepatic: sp lap coco during Renal: nephrolithiasis, hx pyelo, hydro 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: endometriosis, ovarian cysts sp oppherectomy, placenta accreta sp hyst, uterine a embolization History of MRSA: No History of VRE: No History of CDIFF: No Surgical History Surgical History: cholecystectomy, hysterectomy, ureteral stents, lithotripsy, oopherectomy Past Family/Social History Family History Relations & Conditions if any MOTHER FH: CAD (coronary artery disease) Relation not specified for: Kidney stone Kidney stones lupus erythematosus lupus erythematosus Psychosocial History Services at Home: None Smoking Status: Never Smoked ETOH Use: occasional use Illicit Drug Use: denies illicit drug use Employment History 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 Denies: chills, fever, malaise. GI: Reports: abdominal pain. Denies: bloating, constipation, diarrhea, distention, nausea, bloody stool, vomiting. Exam & Diagnostic Data Last 24 Hrs of Vital Signs/I&O Vital Signs Date Time Temp Pulse Resp B/P B/P Pulse O2 O2 Flow FiO2 Mean Ox Delivery Rate 01/12 0304 98.6 86 18 127/78 100 01/12 0011 98.2 80 18 137/92 99 Room Air 01/11 2304 97.5 82 18 131/78 98 01/11 1921 Room Air 01/11 1920 98.2 104 18 136/81 99 Room Air 01/11 1650 97.3 126 24 146/84 98 Room Air Room Air Intake & Output 01/12 0800 01/12 0000 01/11 1600 Intake Total 0 Output Total Balance 0 Intake, Oral 0 Patient 150 lb Weight Weight Reported by Patient Measurement Method Physical Exam General Appearance Alert, Oriented X3, Cooperative, No Acute Distress Skin No Rashes Cardiovascular Regular Rate, Normal S1, Normal S2 Lungs Clear to Auscultation, Normal Air Movement Abdomen Soft, mild tenderness to LUQ per patient; did not press firmly as do not want to dislodge needle/perforate organs Neurological Strength at 5/5 X4 Ext, Sensation Intact, Cranial Nerves 3-12 NL Extremities No Edema Assessment/Plan Assessment: Ms. 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 She was hemming her pants and holding the needle between her teeth, coughed and inhaled the needle. She then drank a glass of water to rinse it down. No pain initially however being in the ER she started to developed pain her epigastric/LUQ regions. Enodrsed nausea and anxiety, but no vomiting/SOB/CP/ Dysphagia. Problem List: #Foreign body in gastric wall w/o perforation #Foreign body -NPO -GI consulted, will perform EGD in AM -CT findings show needle is lodged in gastric wall; please be gentle with physical exam in case of dislodging/perforating -IVF -Monitor hemodynamics in case of dislodgement/perforation DVT prophylaxis ALPS only NPO IV Access: Peripheral IV Full Code Dispo: HSC As Ranked By This Provider Problem List: 1. Needlestick injury accident Core Measures/Misc (02/15) Acute Coronary Syndrome ACS Diagnosis: No Congestive Heart Failure Congestive Heart Failure Diagnosis No Cerebrovascular Accident CVA/TIA Diagnosis: No VTE (View Protocol) VTE Risk Factors No risk factors No Mechanical VTE Prophylaxis d/t N/A MechProphylax Ordered No VTE Pharm Prophylaxis d/t LowRisk-No Interven Req'd Sepsis (View protocol) Sepsis Present: No If YES complete Sepsis Event Note If YES complete Sepsis Event Note Jailene Agrawal 01/12/18 0004: Core Measures/Misc (02/15) Sepsis (View protocol) If YES complete Sepsis Event Note If YES complete Sepsis Event Note Resident Review Statement Resident Statement: examined this patient, discussed with public relations intern, agreed with public relations intern, discussed with family, reviewed EMR data (avail), discussed with nursing , discussed with case mgmt, reviewed images, amended to note Other Findings: Ms. 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 She was hemming her pants and holding the needle between her teeth, coughed and inhaled the needle. She then drank a glass of water to rinse it down. No pain initially however being in the ER she started to developed pain her epigastric/LUQ regions. Enodrsed nausea and anxiety, but no vomiting/SOB/CP/ Dysphagia. Rest of histpry per HPI above. -Smoking: denied -Alcohol: denied -Drugs: denied On admission, Vitals: stable afebrile, BP 136/81, tachycardia 126-104 Physical exam as above. Pertinent findings include relieved epigastric pain and intact BS. Did not palpate ab as risk of perforation. Patient is in no acute distress/pain after morphine. -CBC: WNL -CMP: Hypokalemia 3.3, otherwise WNL -PT/INR/DDimer: WNL -AB CT: The ingested needle is within the stomach. The ends of the needle appear to be embedded in the horner of the stomach but are not seen significantly beyond the lumen of the stomach. -EKG: NSR w/o significant ST-T abnormalities, unchanged from previous. -Interventions in ER: Morphine 4mg IV x 2 Problem list/Assessment/Hospital Course: #Foreign body ingestation w/o imaging evidence of organ perforation #PMHx as above - Admit to General medicine - Vitals per protocol, monitor I&O per protocol. - Would keep on KCL NS fluid gentle IVF overnight to replete K/hydration - Keep NPO - Pending GI Consult for EGD extraction of needle in the AM - Advised patient to monitor any sudden onset of pain/diaphoresis/bloody vomiting. - Pain per pathway w/ morphine only due to allergy DVT prophylaxis ALPS only NPO IV Access: Peripheral IV Full Code Dispo: Deven Mariscal MD 01/12/18 0512: Core Measures/Misc (02/15) Sepsis (View protocol) If YES complete Sepsis Event Note If YES complete Sepsis Event Note Attending MD Review Statement Attending Statement Attending MD Statement: examined this patient, discuss w/resident/PA/MARKETING RESEARCH INTERN, agreed w/resident/PA/MARKETING RESEARCH INTERN Attending Assessment/Plan: Patient is seen and examined independently by me. Care plan discussed with medical clerical assistant and resident. I agree with the physical exam findings and plan of care as outlined above with the following changes and additions. 32 yo F with history of placenta accrete s/p C section, oophorectomy, uterine artery embolization, hysterectomy, s/p lap cholecystectomy, renal stone with hydronephrosis s/p multiple lithotripsies. She presented with epigastric abdominal pain after accidently ingested a sewing needle when she cough (patient was holding the needle in her mouth while she suddenly cough). In the ED, K 3.3. Na 137. XR of neck and CXR show no radiopaque foreign body. AXR shows needle in the antrum of the stomach. CT abdomen shows ingested needle within the stomach with ends of the needle embedded in the horner of the stomach. No free air. She got morphine 4 mg IV x2 and controlled of abdominal pain when I saw her. Surgery is consulted in the ED. Since the needle is embedded in the gastric wall , they suggested GI consult with endoscopic extraction of the needle. Patient is admitted to [facility] for accidental sharp foreign object ingestion which is embedded in the gastric wall. NPO. IV hydration with K supplement. Morphine prn pain. GI consult. Deven Garg MD FACP
--- NOTE | 2018-01-12 07:25 | PN- Housestaff ---
Subjective Follow-up For: none Review of Systems Constitutional: Reports: no symptoms. Objective Last 24 Hrs of Vital Signs/I&O Vital Signs Date Time Temp Pulse Resp B/P B/P Pulse O2 O2 Flow FiO2 Mean Ox Delivery Rate 01/12 1031 98.2 82 18 146/84 99 Room Air 01/12 0612 98.2 83 18 117/74 99 Room Air 01/12 0304 98.6 86 18 127/78 100 01/12 0011 98.2 80 18 137/92 99 Room Air 01/11 2304 97.5 82 18 131/78 98 01/11 1921 Room Air 01/11 1920 98.2 104 18 136/81 99 Room Air 01/11 1650 97.3 126 24 146/84 98 Room Air Room Air Intake & Output 01/12 1600 01/12 0800 01/12 0000 Intake Total 0 Output Total Balance 0 Intake, Oral 0 Patient 150 lb 150 lb Weight Weight Estimated Reported by Patient Measurement Method Physical Exam General Appearance: Alert
--- NOTE | 2018-01-12 09:49 | Proc Note Endoscopy ---
Endoscopy Procedure Medical History: unchanged (see ER note) Mental Status: alert/oriented Heart/Lung Eval Prior to Sedation: within normal limits Candidate for Sedation? Yes Procedure Date: 01/12/18 Procedure Type: EGD with foreign body removal Systems Programmer: Anthony Monaco MD ASA Classification: II Indications: Patient accidentally swallowed a sewing needle and imaging by CAT scan revealed the needle to be embedded in the antrum. Instrument: diagnostic gastroscope, pediatric colonoscope Meds Received: MAC Patient's Tolerance: good Complications: none Extent Reached: proximal jejunum Procedure: After getting written informed consent the patient was prophylactically intubated and was then placed in the left lateral decubitus position with pulse oximetry, cardiac monitoring, and supplemental oxygen given. A bite block was inserted and additional IV sedation was given until the desired effect was achieved. A high definition upper Olympus endoscope was then inserted into the mouth and advanced to the second portion of the duodenum with little difficulty. Retroflexed views and photodocumentation was obtained. After not being able to identify the needle within the antrum or proximal duodenum the scope was changed to a pediatric colonoscope which was then advanced to the proximal jejunum and after close inspection the needle was seen embedded in what was likely the duodenal sweep. The needle was grasped with a rat-tooth forcep and pulled into the stomach without difficulty. The needle was initially grabbed in a fashion so that it was perpendicular to the scope and it encountered resistance on efforts to pull it throught the GEJ so it was then dropped in the stomach and it was then grabbed it in a longitudinal fashion so that it was able to be pulled into the scope and the scope was then removed from the scope and the procedure was terminated. After the needle was inspected it was determined that a small piece of the needle may have broken off presumably when it encountered resistance at the GEJ so both the pediatric colonoscope and then the upper endoscope was re-introduced into the stomach in a effort to localize any addition metalic pieces, but nothing else was found after extensive irrigations of the stomach and small bowel so it was felt that as at least 80-90% of the needle was removed any small pieces would pass spontaneously or it was likely suctioned away with the residulal bile in her stomach so the scope was then removed from the patient and the procedure was terminated. She reported symptomatic improvement upon awakening from sedation. Findings: Esophagus: Esophageal mucosa was grossly normal appearance and there is a normal -appearing Z line at 39 cm from the incisors. There was a superficial tear at the GE junction appreciated on retroflexed views from where the needle encountered resistance on being pulled through the GEJ, but there was no significant bleeding and there was no residual metalic pieces appreciated embedded in the GEJ. Stomach: The gastric mucosa was diffusely atrophic in appearance, and there was one area of prominent erythema in the antrum presumably where the needle was embedded, but as stated in the procedure section of this report there were no foreign bodies appreciated within stomach. Retroflexed views did not reveal significant hiatal hernia. There were a few small polyps in the fundus approximately 2-3 mm in size which were consistent in appearance with fundic gland polyps and were left in place. Duodenum: The duodenal bulb was grossly normal in appearance. After inspection of the duodenal sweep the sewing needle was eventually seen embedded with some fresh blood. As stated in the procedure section of this report the needle was removed with a rat-tooth forcep. Jejunum: The proximal jejunum was grossly normal in appearance. Impression: 1. Sewing needle embedded and duodenal sweep status post removal via a rat tooth forceps and patient noted complete symptomatic improvement on awakening from the sedation. 2. Atrophic gastritis. 3. Fundic gland polyps. Recommendations: 1. Use Tums or H2 areas as needed for any dyspeptic symptoms or heartburn. 2. Diet as tolerated. 3. She was instructed to return to the emergency room for any severe abdominal pain which may ensue in the next 24-48 hours. 4. She was asked to follow-up with her PCP for routine healthcare maintenance and with GI as needed for any new, worsening or persistent GI symptoms. CC: Zakia BETANCOURT,Marie Carroll
[2018-01-12 10:31] VITALS: BP 146/84
--- NOTE | 2018-01-12 10:45 | Event Note ---
Event Note Event Note: When he arrived in the morning the patient has been sent to the GI suite and was not able to see the patient. Apparently the patient was discharged home from the GI suite and could not examine or assess the patient for today.
--- NOTE | 2018-01-12 10:49 | PN- Att Addend ---
Attending Addendum Attending Brief Note I went down to GI suite to see the patient but patient had already left. She received her endoscopy and the needle was removed according to the report. Patient did well after the procedure according to the procedure note. I have not seen the patient and patient has already been discharged from the GI suite.
--- NOTE | 2018-01-12 10:52 | Patient Discharge Instructions ---
Discharge Instructions General Discharge Information You were seen/treated for: Foreign body in the stomach You had these procedures: Endoscopy Acute Coronary Syndrome Inclusion Criteria At DC or during hospital stay patient has or had the following: ACS DIAGNOSIS No Discharge Core Measures Meds if any: Prescribed or Continued at Discharge Meds if any: NOT Prescribed or Continued at Discharge Congestive Heart Failure Inclusion Criteria At DC or during hospital stay patient has or had the following: CHF DIAGNOSIS No Discharge Core Measures Meds if any: Prescribed or Continued at Discharge Meds if any: NOT Prescribed or Continued at Discharge Cerebrovascular accident Inclusion Criteria At DC or during hospital stay patient has or had the following: CVA/TIA Diagnosis No Discharge Core Measures Meds if any: Prescribed or Continued at Discharge Meds if any: NOT Prescribed or Continued at Discharge Venous thromboembolism Inclusion Criteria VTE Diagnosis No VTE Type NONE VTE Confirmed by (Test) NONE Discharge Core Measures - Per Current guidelines, there needs to be overlap - treatment for the first 5 days of Warfarin therapy. - If discharged on Warfarin prior to 5 days of - overlap therapy, the patient will need to be - assessed for post discharge needs including - *Post discharge parental anticoagulation - *Warfarin and/or parental anticoagulation education - *Follow up date to check INR post discharge At least 5 days overlap therapy as Inpatient No Meds if any: Prescribed or Continued at Discharge Note: Overlap Therapy is Warfarin and Anticoagulant Meds if any: NOT Prescribed or Continued at Discharge
== END 2018-01-12 10:49 | DRG 395 ==
LOC: ERH 16:34 → ERHI 23:50
PROVIDERS: Physician Assistant
PROC: 0DC68ZZ Extirpation of Matter from Stomach, Via Natural or Artificial Opening Endoscopic (ICD-10-PCS; principal; 2018-01-12)
DX: T18.2XXA Foreign body in stomach, initial encounter (principal); X58.XXXA Exposure to other specified factors, initial encounter; Y93.D2 Activity, sewing; Y92.009 Unspecified place in unspecified non-institutional (private) residence as the place of occurrence of the external cause; Z90.710 Acquired absence of both cervix and uterus; Z90.79 Acquired absence of other genital organ(s); Z90.722 Acquired absence of ovaries, bilateral; Z88.6 Allergy status to analgesic agent; Z88.5 Allergy status to narcotic agent; Z88.8 Allergy status to other drugs, medicaments and biological substances; Z90.49 Acquired absence of other specified parts of digestive tract
CPT/HCPCS: ERO; 70360; 71045; 74018; 74176; 82436